=== PATIENT | female | born 1960 | race Caucasian/White ===

== ENCOUNTER 2020-05-09 10:44 | Day surgery (SDC) | payer BC ==
[2020-05-07 11:33] VITALS: BMI 26.6
[~2020-05-09 10:44] MED LIST: Bupivacaine HCl 0.5%/Epinephrine 1:200,000/PF 30 ml Vial ONE; Ketorolac Tromethamine 30 MG/ML VIAL ONE; Lidocaine 1% PF 5 ML VIAL ONE; Ondansetron PF 4 MG/2 ML Vial ONE; PROPOFOL 200 MG/20 ML VIAL ONE
[2020-05-09] MEDS ORDERED: Midazolam HCl 2 mg/2 ml Vial ONE ×2 (11:56→12:45)
[2020-05-09] MEDS ORDERED: Fentanyl 100 MCG/2 ML VIAL ONE (11:56)
[2020-05-09 12:01] LABS: Anion Gap 11 mmol/L (10-20); BUN (Urea Nitrogen) 18 mg/dL (9.8-20.1); Calc. Creatinine Clearance 91 mL/min (70-130); Calcium 9.7 mg/dL (7.8-10.44); Carbon Dioxide 30 mmol/L (22-29); Chloride 105 mmol/L (98-107); Glucose 92 mg/dL (70-105); Sodium 142 mmol/L (136-145)
--- NOTE | 2020-05-09 15:30 | RAD ---
EXAM: 2 views of the left wrist HISTORY: ORIF of distal radius fracture COMPARISON: 04/29/2020 FINDINGS: 2 limited intraoperative fluoroscopic views of the left wrist shows the patient is status p ost ORIF of the distal radius fracture with a plate and screws. No perihardware lucency is seen. There is better alignment of the fracture. IMPRESSION: Status post ORIF of left distal radius fracture without evidence of complication.
--- NOTE | 2020-05-09 20:35 | OP ---
DATE OF PROCEDURE: 05/09/2020 OPERATION: Open reduction and internal fixation of left distal radial fracture. PREOPERATIVE DIAGNOSIS: Displaced left distal radial fracture. POSTOPERATIVE DIAGNOSIS: Displaced left distal radial fracture. COMPLICATIONS: None. ESTIMATED BLOOD LOSS: Minimal. ENAMEL DIPPER: John Redman. IMPLANT: Synthes volar distal radial plate, three hole. DESCRIPTION OF OPERATION: The patient was identified in the preoperative holding area. Her correct extremity was marked. She was carried to the operating room. She was positioned supine. General anesthesia was induced. A multidisciplinary time-out was performed. The left upper extremity was prepped and draped in sterile fashion. We began the procedure with opening the patient's wrist over the volar aspect. We dissected down through the subcutaneous tissues to the FCR tendon. The tendon sheath was opened. We then dissected more deeply and opened the deep aspect of the tendon sheath. We then elevated the pronator quadratus from the bone. This exposed the fracture. There was a dorsally displaced fracture. We used a [place] elevator to anatomically align the fracture. We took x-ray images confirming this. Once we had anatomic reduction, we applied a volar distal radial plate. We were able to place a screw proximally and multiple locking screws distally. Again, we checked intraoperative x-rays. We then filled all the remaining screw holes. We took final images. We thoroughly irrigated with copious lavage. We then closed in layers and a sterile dressing was applied. The patient was taken to the recovery room in good condition at this point. Job ID: [id number]
--- NOTE | 2020-05-09 21:05 | EKG ---
Test Reason : PREOP Blood Pressure : / mmHG Vent. Rate : 058 BPM Atrial Rate : 058 BPM P-R Int : 136 ms QRS Dur : 084 ms QT Int : 442 ms P-R-T Axes : 060 048 035 degrees QTc Int : 433 ms Sinus bradycardia Otherwise normal ECG No previous ECGs available Confirmed by Jerrell CORTES ([id number]) on 05/09/2020 9:05:06 PM Referred By: QUINTON Confirmed By:Jerrell CORTES
== END 2020-05-09 15:20 | disposition home or self-care (01) ==
LOC: SDC 10:44
PROVIDERS: ATTEND Orthopaedic Surgery
PROC: 0PSJ04Z Reposition Left Radius with Internal Fixation Device, Open Approach (ICD-10-PCS; principal; 2020-05-09)
DX: S52.532A Colles' fracture of left radius, initial encounter for closed fracture (principal); I10 Essential (primary) hypertension; E78.5 Hyperlipidemia, unspecified; F32.9 Major depressive disorder, single episode, unspecified; Z79.899 Other long term (current) drug therapy; W19.XXXA Unspecified fall, initial encounter
CPT/HCPCS: 36415; 76000; 80048; 93005; 93010; C1713; J0690; J1885; J2250; J2405; J2704; J3010

== ENCOUNTER 2024-03-14 08:37 | Outpatient (CLI) | payer BC ==
[2024-03-14 09:31] LABS: #Basophils 0.03 10x3/uL (0.0-0.2); %Basophils 0.5 % (0.0-1.0); %Eosinophils 1.9 % (0.0-10.0); %Monocytes 6.2 % (0.0-10.0); %Neutrophils 60.1 % (42.0-75.0); Hemoglobin 13.3 g/dL (12.0-16.0); Mean Corpuscular HGB CONC 34.1 g/dL (32.0-36.0); Mean Corpuscular Hemoglobin 30.5 pg (27.0-31.0); Mean Corpuscular Volume 89.4 fL (78.0-98.0); Mean Platelet Volume 10.5 fL (7.4-10.4); Platelet Count 221 10x3/uL (130-400); RBC Distribution Width 14.1 % (11.5-14.5); Red Blood Cell (RBC) Count 4.36 mill/uL (4.20-5.40)
[2024-03-14 10:12] LABS: Anion Gap 12 mmol/L (10-20); BUN (Urea Nitrogen) 15 mg/dL (9.8-20.1); Calc. Creatinine Clearance 0 mL/min (70-130); Calcium 9.3 mg/dL (7.8-10.44); Carbon Dioxide 28 mmol/L (23-31); Chloride 108 mmol/L (98-107); Estimated GFR 90; Glucose 100 mg/dL (80-115); Potassium 3.8 mmol/L (3.5-5.1); Sodium 144 mmol/L (136-145)
== END 2024-03-14 08:38 | disposition home or self-care (01) ==
LOC: LABBT 08:37
PROVIDERS: ATTEND Orthopaedic Surgery
DX: Z01.818 Encounter for other preprocedural examination (principal); T84.84XA Pain due to internal orthopedic prosthetic devices, implants and grafts, initial encounter
CPT/HCPCS: 80048; 85025; 93005; 93010

== ENCOUNTER 2024-03-16 05:55 | Day surgery (SDC) | payer BC ==
[2024-03-14 08:53] VITALS: BMI 27.3
[2024-03-16] MEDS ORDERED: CEFAZOLIN 2 GM VIAL ONE (06:18)
[2024-03-16] MEDS ORDERED: Lidocaine 1% MPF 2 ML VIAL ONE (06:18)
[2024-03-16] MEDS ORDERED: Bacitracin Zinc Ointment 30 gm TUBE ONE (06:29)
[2024-03-16] MEDS ORDERED: Bupivacaine PF 0.5% 30 ML VIAL ONE (06:30)
[2024-03-16] MEDS ORDERED: fentaNYL PF 100 MCG/2 ML SYRINGE ONE (06:53)
[2024-03-16] MEDS ORDERED: Lidocaine 2% PF 5 ML VIAL ONE (06:53)
[2024-03-16] MEDS ORDERED: PROPOFOL 20 ML ONE ×2 (06:53→07:29)
[2024-03-16] MEDS ORDERED: Ondansetron PF 4 MG/2 ML Vial ONE (07:26)
[2024-03-16] MEDS ORDERED: Dexamethasone 4 mg/ml Vial ONE (07:26)
[2024-03-16] MEDS ORDERED: fentaNYL 50 mcg/mL 1 mL Vial ONE (08:00)
[2024-03-16] MEDS ORDERED: ePHEDrine Sulfate 50 MG/10 ML VIAL ONE (08:07)
== END 2024-03-16 10:02 | disposition home or self-care (01) ==
LOC: SDC 05:55
PROVIDERS: ATTEND Orthopaedic Surgery
PROC: 0RBP0ZZ Excision of Left Wrist Joint, Open Approach (ICD-10-PCS; principal; 2024-03-16)
PROC: 0XP70YZ Removal of Other Device from Left Upper Extremity, Open Approach (ICD-10-PCS; principal; 2024-03-16)
DX: T84.84XA Pain due to internal orthopedic prosthetic devices, implants and grafts, initial encounter (principal); I10 Essential (primary) hypertension; M17.11 Unilateral primary osteoarthritis, right knee; Z98.890 Other specified postprocedural states; Z79.899 Other long term (current) drug therapy; Z90.710 Acquired absence of both cervix and uterus; Y83.1 Surgical operation with implant of artificial internal device as the cause of abnormal reaction of the patient, or of later complication, without mention of misadventure at the time of the procedure
CPT/HCPCS: A6223; J0665; J1100; J2405; J2704; J3010